=== PATIENT | female | born 1955 ===

== ENCOUNTER 2024-09-27 01:46 | Outpatient (CLI) | payer MEDICARE, SELFPAY ==
--- NOTE | 2024-09-27 | DI.DEXA_ITS ---
Exam(s) XR DEXA BONE DENSITY W/WO JEFFERY EXAM: XR DEXA BONE DENSITY W/WO JEFFERY CLINICAL HISTORY: Z78.0,M85.80,C50.512,Z17.0; Osteopenia after menopause, CA of lower outer TECHNIQUE: [employer] C densitometer analysis of left hip, lumbar spine and left forearm. Lat eral survey image of the thoracic and lumbar spine. COMPARISON: No exams were available for comparison FINDINGS: Lateral view of the thoracic and lumbar spine shows no evidence of compression fractures. There are severe degenerative changes in the lumbar spine with prominent endplate osteophytes and sclerosis. T his elevates the bone mineral density measurements. Bone mineral density measurements of the lumbar spine correspond to a total T-score of 2.3, in the n ormal range. Bone mineral density measurements of the left hip correspond to a total T-score of 0.8. The femora l neck T-score is -0.3, in the normal range.. Theleft forearm bone mineral density measurements correspond to a T-score of the distal 3rd of -1.0, at the lower limit of normal.. IMPRESSION: Normal bone mineral density.
== END 2024-09-27 02:06 ==
LOC: DI 01:47
PROVIDERS: PCP Physician Assistant; Visit Provider Internal Medicine Medical Oncology
DX: Z78.0 Asymptomatic menopausal state (principal); Z13.820 Encounter for screening for osteoporosis
CPT/HCPCS: 77080